=== PATIENT | female | born 1955 | race African-American/Black ===

== ENCOUNTER 2021-10-16 14:00 | Emergency (ER) | payer MEDICARE ==
[2021-10-16] MEDS ORDERED: Quelicin Fliptop 200 MG/10 ML IV ONE (14:01)
[2021-10-16] MEDS ORDERED: XYLOCAINE 1% HCL 20 ML MDV IJ ONE (14:01)
[2021-10-16] MEDS ORDERED: Amidate 20 MG/10 ML IV ONE (14:01)
[2021-10-16 14:28] VITALS: O2SAT 100
[2021-10-16 14:33] LABS: A-aADO2 13; ABG HEMOGLOBIN 11.1; ABG POTASSIUM 3.2 (3.5-5.1); ARTERIAL BLD GAS O2 SATURATION 97.8 % (95-100); ARTERIAL BLOOD GAS BASE EXCESS 8.8 (-2.0-2.0); ARTERIAL BLOOD GAS FIO2 21 %; ARTERIAL BLOOD GAS PCO2 45 mmHg (35-45); ARTERIAL BLOOD GAS PO2 80 mmHg (75-100); ARTERIAL BLOOD GAS pH 7.48 (7.35-7.45); CARBOXYHEMOGLOBIN 1.2 % THgb (0.0-6.9); HCO3- 33.5 (22-28); HGB O2 SAT 95.9 g/dF (94-100); Methhemoglobin 0.7 % (1.4-1.5)
[2021-10-16 14:34] LABS: ABG SITE RIGHT RADIAL; ALLEN TEST OK? YES
[2021-10-16] MEDS ORDERED: Sodium Chloride 0.9% 1000 ML 1,000 ML ONE (15:02)
[2021-10-16] MEDS ORDERED: Propofol 1000 mg/100 ml Bottle 100 ML IV ONE (15:07)
[2021-10-16] MEDS ORDERED: Sodium Chloride 0.9% 1000 ML 1,000 ML IV STA (15:12)
[2021-10-16] MEDS ORDERED: POTASSIUM CHLORIDE 20 mEq IN WATER 100ML 20 MEQ/100 ML BAG IV SCH (15:15)
[2021-10-16] MEDS ORDERED: POTASSIUM CHLORIDE 20 mEq IN WATER 100ML 0 ML IV ONE (15:20)
[2021-10-16] MEDS ORDERED: SUBLIMAZE 100 MCG/2 ML IV ONE (15:24)
--- NOTE | 2021-10-16 15:28 | ERPHSYRPT ---
- History of Present Illness Time Seen by Provider: 10/16/21 14:08 Source: family, EMS, [facility] records Exam Limitations: clinical condition Patient Subjective Stated Complaint: Hyperglycemia/unresponsive Triage Nursing Assessment: Patient brought into ED per EMS and transferred to bed with asssit of 4. Patient unsponsive, but wakens to painful stimuli. Patient resides at [facility] where they said her blood sugars having been running HIGH all da y. BS noted to be HIGH. Physician History: 66-year-old [facility] with history of diabetes mellitus, hypertension, previous necrotizing fasciitis abdominal wall who was recently admitted at [facility] is brought in the ER by EMS with elevated blood sugar and not acting herself/unresponsive which is not normal for her. Per EMS/[facility]/family patient is usually awake and aggressive and this is no normal baseline for her. No vomiting or diarrhea reported. No fever or chills reported. History is limited secondary to her condition. Timing/Duration: today Severity: severe Modifying Factors: Improves With: nothing Allergies/Adverse Reactions: No Known Drug Allergies Allergy (Unverified 10/16/21 14:30) Hx Influenza Vaccination/Date Given: (unknown) Hx Pneumococcal Vaccination/Date Given: (unknown) Immunizations Up to Date: (unknown) Travel Risk - International Travel Have you traveled outside of the country in past 3 weeks: No - Coronavirus Screening Are you exhibiting any of the following symptoms?: No - Vaccine Status Have you recieved a Covid-19 vaccination: No Regulator Pin Inserter: Unknown - Vaccination Dates Dates if Unknown: na - Review of Systems All Other Systems: Unable due to condition - Past Medical History Other Medical History: Patient poor hisotrian; refer to [facility] paper work. JEANNIE, Necrotizing fascitis, CVA-affected right side, DM, HTN, Afib, GERD - Past Surgical History Other Surgical History: poor historian - Social History Smoking Status: Unknown if ever smoked Exposure to second hand smoke: No Drug Use: none Patient Lives Alone: No ([facility]) - Nursing Vital Signs Nursing Vital Signs: Initial Vital Signs Temperature 96.1 F 10/16/21 14:08 Pulse Rate 107 H 10/16/21 14:08 Respiratory Rate 23 10/16/21 14:08 Blood Pressure 122/72 10/16/21 14:08 O2 Sat by Pulse Oximetry 100 05/07/22 14:08 Pain Scale Pain Intensity 0 - Physical Exam General Appearance: other (Unresponsive) Eye Exam: eyes nml inspection, other (Bilateral 4 mm pupil reacting to light) Ears, Nose, Throat Exam: normal ENT inspection, TMs normal, moist mucous membranes Neck Exam: normal inspection, supple Respiratory Exam: normal breath sounds, lungs clear Cardiovascular Exam: regular rate/rhythm, normal heart sounds Gastrointestinal/Abdomen Exam: soft, normal bowel sounds, other (Mild skin erythema left groin. Otherwise well-healed scar), No tenderness Back Exam: normal inspection Extremity Exam: normal inspection, pelvis stable Neurologic Exam: other (Mild increased tone on the right side. Bilateral reacting pupil. Responds to pain. Unresponsive otherwise.) Skin Exam: normal color SpO2 Interpretation: normal SpO2: 100 O2 Delivery: Room Air Procedures - Central Line Time Of Procedure: 14:42 Timeout: Performed Central Line Lumen: triple Lumen Size: 7 [place] Central Line Procedure: chlorahexadine prep, sterile drapes applied, sterile dressing applied, Aseptic Technique, Seldinger Technique Central Line Postion: internal jugular (L) Anesthesia: 1% Lidocaine cc's of anesthesia: 3 Ultrasound Guided Placement: Yes Complications: none Central Line Post Position: sutured, good blood return, position confirmed w/ CXR, chest x-ray ordered - Intubation Time of Intubation: 15:05 Intubation Indications: airway protection Intubation Method: orotracheal, glidescope Tube Size (cm): 7.5 Medications: Etomidate, Succinylcholine Endotracheal Tube Confirmation: bilateral breath sounds, positive end tidal CO2, good rise & fall of chest, stable or inc of O2 sat Intubation Complications: no complications Performed By: ED Physician Post Intubation Xray: Yes - Course EKG Interpreted by Me: RATE ([id number]), Sinus Tach, Left [place] Deviation, Q-wave, Non- specific ST Changes, Other (PACs, nonspecific T wave changes) Ordered Tests: Active Orders 24 hr Category Date Time Status Activity Therapist STAT Care 10/16/21 15:13 Active EKG-ER Only STAT Care 10/16/21 15:12 Active IV Insertion STAT Care 10/16/21 15:12 Active POCT Glucose Check STAT Care 10/16/21 15:12 Active CHEST 1 VIEW (PORTABLE) Stat Exams 10/16/21 15:02 Taken HEAD WITHOUT CONTRAST [CT] Stat Exams 10/16/21 15:14 Taken ABG [ARTERIAL BLOOD GASES] Stat Lab 10/16/21 14:25 Completed ARTERIAL BLOOD GASES Urgent Lab 10/16/21 15:13 Ordered CBC W DIFF Stat Lab 10/16/21 15:12 Completed CMP Stat Lab 10/16/21 15:12 Completed Glucose,Critical Care Stat Lab 10/16/21 14:25 Completed Lactic Acid Stat Lab 10/16/21 14:25 Completed MAGNESIUM Stat Lab 10/16/21 15:12 Completed UA W/RFX CULTURE Stat Lab 10/16/21 15:18 Ordered Medication Summary Generic Name Dose Route Start Last Admin Trade Name Freq PRN Reason Stop Dose Admin Potassium Chloride 20 meq in 100 mls @ 50 mls/hr 10/16/21 15:15 10/16/21 15:22 Potassium Chloride 20 Meq In Water 100ml IV 10/16/21 19:14 50 mls/hr Q2H MIHIR Administration Discontinued Medications Generic Name Dose Route Start Last Admin Trade Name Freq PRN Reason Stop Dose Admin Fentanyl Citrate 50 mcg 10/16/21 15:24 10/16/21 15:30 Fentanyl Citrate 100 Mcg/2 Ml* Vial IV 10/16/21 15:25 50 mcg STAT ONE Administration Fentanyl Citrate Confirm 10/16/21 15:29 Fentanyl Citrate 100 Mcg/2 Ml* Vial Administered 10/16/21 15:30 Dose 100 mcg .ROUTE .STK-MED ONE Sodium Chloride Confirm 10/16/21 15:02 Sodium Chloride 0.9% 1000 Ml Administered 10/16/21 15:03 Dose 1,000 mls @ ud .ROUTE .STK-MED ONE Propofol Confirm 10/16/21 15:07 Propofol 1000 Mg/100 Ml Bottle Administered 10/16/21 15:08 Dose 100 mls @ ud IV .STK-MED ONE Sodium Chloride 1,000 mls @ 999 mls/hr 10/16/21 15:12 10/16/21 16:23 Sodium Chloride 0.9% 1000 Ml IV 10/16/21 16:12 Infused .Q1H1M STA Infusion Sodium Chloride Confirm 10/16/21 16:18 Sodium Chloride 0.45% 1000 Ml Administered 10/16/21 16:19 Dose 1,000 mls @ ud IV .STK-MED ONE Midazolam HCl 2 mg 10/16/21 15:50 10/16/21 15:59 Midazolam Hcl 2 Mg/2 Ml Vial IV 10/16/21 15:51 2 mg 1XONLY ONE Administration Lab/Rad Data: Laboratory Result Diagrams 10/16/21 15:12 10/16/21 15:12 Laboratory Results 10/16/21 10/16/21 10/16/21 Range/Units 15:12 15:12 14:25 WBC 8.7 (4.0-10.5) K/mm3 RBC 4.03 L (4.1-5.4) M/mm3 Hgb 10.2 L (12.0-16.0) gm/dl Hct 34.9 L (35-47) % MCV 86.6 (78-100) fl MCH 25.3 L (26-32) pg MCHC 29.2 L (32-36) g/dl RDW 18.4 H (11.5-14.0) % Plt Count 216 (150-450) K/mm3 MPV 12.1 H (7.5-11.0) fl Gran % 80.7 H (36.0-66.0) % Eos # (Auto) 0.03 (0-0.5) Absolute Lymphs (auto) 1.18 (1.0-4.6) Absolute Monos (auto) 0.46 (0.0-1.3) Lymphocytes % 13.5 L (24.0-44.0) % Monocytes % 5.3 (0.0-12.0) % Eosinophils % 0.3 (0.00-5.0) % Basophils % 0.2 (0.0-0.4) % Absolute Granulocytes 7.04 H (1.4-6.9) Basophils # 0.02 (0-0.4) Puncture Site pCO2 (35-45) mmHg pO2 (75-100) mmHg Base Excess (-2.0-2.0) O2 Saturation (94-100) g/dF ABG pH (7.35-7.45) ABG HCO3 (22-28) ABG O2 Sat (Measured) (95-100) % Etienne Test A-a Gradient a/A Ratio Hemoglobin Carboxyhemoglobin (0.0-6.9) % THgb Methemoglobin (1.4-1.5) % Potassium 3.1 L (3.5-5.1) Glucose 619 H* 685 H* (70-110) Temperature C POC O2 Flow Rate % Sodium 159 H* (137-145) mmol/L Chloride 111 H (98-107) mmol/L Carbon Dioxide 34 H (22-30) mmol/L Anion Gap 15.2 H (5-15) MEQ/L BUN 72 H (7-17) mg/dL Creatinine 2.02 H (0.52-1.04) mg/dL Estimated GFR 26.1 ML/MIN Lactic Acid (0.4-2.0) Calcium 9.5 (8.4-10.2) mg/dL Magnesium 2.5 H (1.6-2.3) mg/dL Total Bilirubin 0.40 (0.2-1.3) mg/dL AST 23 (14-36) U/L ALT 20 (0-35) U/L Alkaline Phosphatase 123 (38-126) U/L Serum Total Protein 6.7 (6.3-8.2) g/dL Albumin 3.2 L (3.5-5.0) g/dL 10/16/21 10/16/21 Range/Units 14:25 14:25 WBC (4.0-10.5) K/mm3 RBC (4.1-5.4) M/mm3 Hgb (12.0-16.0) gm/dl Hct (35-47) % MCV (78-100) fl MCH (26-32) pg MCHC (32-36) g/dl RDW (11.5-14.0) % Plt Count (150-450) K/mm3 MPV (7.5-11.0) fl Gran % (36.0-66.0) % Eos # (Auto) (0-0.5) Absolute Lymphs (auto) (1.0-4.6) Absolute Monos (auto) (0.0-1.3) Lymphocytes % (24.0-44.0) % Monocytes % (0.0-12.0) % Eosinophils % (0.00-5.0) % Basophils % (0.0-0.4) % Absolute Granulocytes (1.4-6.9) Basophils # (0-0.4) Puncture Site RIGHT RADIAL pCO2 45 (35-45) mmHg pO2 80 (75-100) mmHg Base Excess 8.8 H (-2.0-2.0) O2 Saturation 95.9 (94-100) g/dF ABG pH 7.48 H (7.35-7.45) ABG HCO3 33.5 H* (22-28) ABG O2 Sat (Measured) 97.8 (95-100) % Etienne Test YES A-a Gradient 13 a/A Ratio 0.86 Hemoglobin 11.1 Carboxyhemoglobin 1.2 (0.0-6.9) % THgb Methemoglobin 0.7 L (1.4-1.5) % Potassium 3.2 L (3.5-5.1) Glucose (70-110) Temperature 37.0 C POC O2 Flow Rate 21 % Sodium (137-145) mmol/L Chloride (98-107) mmol/L Carbon Dioxide (22-30) mmol/L Anion Gap (5-15) MEQ/L BUN (7-17) mg/dL Creatinine (0.52-1.04) mg/dL Estimated GFR ML/MIN Lactic Acid 6.1 H (0.4-2.0) Calcium (8.4-10.2) mg/dL Magnesium (1.6-2.3) mg/dL Total Bilirubin (0.2-1.3) mg/dL AST (14-36) U/L ALT (0-35) U/L Alkaline Phosphatase (38-126) U/L Serum Total Protein (6.3-8.2) g/dL Albumin (3.5-5.0) g/dL - Progress Progress: improved Progress Note: 10/16/21 16:38 66-year-old is evaluated for altered mental status. Patient had a GCS around 8 on presentation although she was maintaining her vitals on her own. She is intubated to protect her airway. Central line is placed. Work-up showed normal white count, chemistry profile showed blood sugar of 619 with no low bicarb and gap of 15 and acute renal failure with baseline creatinine 0.8 and today 2.02 and a sodium of 159 and mild hypokalemia of 3.1. She is given a fluid bolus of normal saline initially and then plan was to give her free water but her blood pressure dropped and will continue with half-normal saline for now. Calculated free water deficit is between 5.2 to 5.9 L. Do not have nephrology services. She is also getting potassium replacement. Chest x-ray did not show any acute findings and tube and central line seems to be well in place. CT head negative for any acute findings as well. Discussed with Dr. Maicol Eng at [facility], reviewed history, work-up and patient is excepted for transfer. Plan discussed with family in detail who understand and agree with it. 10/16/21 16:40 Counseled pt/family regarding: lab results, diagnosis, rad results - Departure Departure Disposition: Transfer Clinical Impression: Hyperosmolar hyperglycemic state (HHS), Hypernatremia, Acute renal failure, Hypokalemia, AMS (altered mental status) Condition: Serious Critical Care Time: Yes Critical Care Time(excluding separately billable procedures): Critical 30-74 min s Referrals: ENVIVE,ENVIVE [Primary Care Provider] - Follow up/PCP as directed
[2021-10-16] MEDS ORDERED: SUBLIMAZE 100 MCG/2 ML ONE (15:29)
[2021-10-16 15:38] LABS: Absolute Neutrophil Ct (ANC) 7.04 (1.4-6.9); Basophil (Absolute #) 0.02 (0-0.4); Eosinophil % 0.3 % (0.00-5.0); Eosinophil (Absolute #) 0.03 (0-0.5); Hematocrit 34.9 % (35-47); Hemoglobin 10.2 gm/dl (12.0-16.0); Lymphocyte (Absolute #) 1.18 (1.0-4.6); Lymphocytes % 13.5 % (24.0-44.0); Mean Cell Volume 86.6 fl (78-100); Mean Corpuscular Hemoglobin 25.3 pg (26-32); Mean Corpuscular Hgb Concent. 29.2 g/dl (32-36); Mean Platelet Volume 12.1 fl (7.5-11.0); Monocyte (Absolute #) 0.46 (0.0-1.3); Monocytes % 5.3 % (0.0-12.0); Neutrophil % 80.7 % (36.0-66.0); Platelet Count 216 K/mm3 (150-450); Red Blood Count 4.03 M/mm3 (4.1-5.4); Red Cell Distribution Width 18.4 % (11.5-14.0); White Blood Count 8.7 K/mm3 (4.0-10.5)
[2021-10-16 15:44] LABS: ALBUMIN 3.2 g/dL (3.5-5.0); ANION GAP 15.2 MEQ/L (5-15); BILIRUBIN,TOTAL 0.4 mg/dL (0.2-1.3); Calcium 9.5 mg/dL (8.4-10.2); Creatinine 1 2.02 mg/dL (0.52-1.04); EST GLOMERULAR FILTRATION RATE 26.1 ML/MIN; MAGNESIUM 2.5 mg/dL (1.6-2.3); Potassium 3.1 mmol/L (3.5-5.1); Total Protein 6.7 g/dL (6.3-8.2)
[2021-10-16] MEDS ORDERED: Versed 2 MG/2 ML Injection IV ONE (15:50)
[2021-10-16 16:43] VITALS: BP 116/84; PULSE 104
[2021-10-16] MEDS ORDERED: ROCEPHIN 2 Gm-D5w 50ML BAG** 2 G/50 ML IVPB IV STA (16:45)
[2021-10-16] MEDS ORDERED: ROCEPHIN 2 Gm-D5w 50ML BAG** 2 G/50 ML IVPB IV ONE (16:52)
--- NOTE | 2021-10-18 10:11 | XRAY ---
Indication: Endotracheal tube and central line placement. Comparison: None Portable apical lordotic chest demonstrates endotracheal tube tip 4 cm above zeferino and left IJ central venous access catheter with tip projecting over SVC. No pneumothorax. Remaining lungs are clear. Heart not enlarged with stent graft versus valvular prosthesis. Bony thorax intact. Comment: Preliminary interpretation made by [facility]. No critical discrepancy.
--- NOTE | 2021-10-18 10:12 | XRAY ---
Indication: Acute mental status change. Hyperglycemia and unresponsive. Multiple contiguous axial images obtained through the head without contrast. Comparison: None Age-appropriate global atrophy and moderate periventricular degenerative micro-ischemia bilaterally. Moderate size focus old right temporoparietal infarct. No acute intracranial hemorrhage, hydrocephalus, or mass effect. Bony calvarium intact. Visualized paranasal sinuses and mastoid air cells are clear. Impression: Nonacute senile brain with old right temporoparietal infarct. Comment: Preliminary interpretation made by [facility]. No critical discrepancy.
== END 2021-10-16 17:10 | disposition short-term general hospital (02) ==
LOC: ED 14:00
DX: E11.00 Type 2 diabetes mellitus with hyperosmolarity without nonketotic hyperglycemic-hyperosmolar coma (NKHHC) (principal); N17.9 Acute kidney failure, unspecified; E87.0 Hyperosmolality and hypernatremia; E87.6 Hypokalemia; R41.82 Altered mental status, unspecified; I10 Essential (primary) hypertension
CPT/HCPCS: 31500; 36415; 36556; 36600; 70450; 71045; 80053; 82375; 82803; 82947; 83605; 83735; 85025; 93005; 93041; 94002; 94799; 96374; 96375; 96376; 99285; 99291; J0330; J0696; J2250; J2704; J3010; J3480